=== PATIENT | female | born 1965 | race Two or more races ===

== ENCOUNTER 2024-01-18 15:08 | Inpatient (IN) | payer OTHER, SELFPAY ==
[2024-01-04 07:10] VITALS: BMI 36.7
[2024-01-04 08:48] LABS: Hematocrit 40.8 % (37.0-47.0); Hemoglobin 13.1 g/dL (12.0-16.0); Mean Corp Hgb Conc. 32.1 g/dL (33.0-37.0); Mean Corpuscular Hgb 27.9 pg (27.0-31.0); Mean Platelet Volume 9.7 fL (7.4-10.4); Platelet Count 265 10^3/uL (130-400); Red Blood Cell Count 4.69 10^6/uL (4.20-5.40); Red Cell Dist. Width 13.8 % (11.5-14.5)
[2024-01-04 09:25] LABS: Blood Urea Nitrogen 20 mg/dl (7-17); Calcium 9.7 mg/dl (8.4-10.2); Carbon Dioxide 26 mmol/L (22-30); Chloride 104 mmol/L (98-107); Estimated Creatinine Clearance 112 ml/min; Glucose 87 mg/dl (70-99); Potassium 3.9 mmol/L (3.5-5.1); Sodium 137 mmol/L (135-145); eGFR > 60.00
--- NOTE | 2024-01-06 12:10 | CM ---
Patient is scheduled for a Robotic incisional hernia repair on 01/18/24. Spoke with patient's prior to surgery via telephone to complete case management assessment and assess for discharge planning needs. He reports that he, patient, their
son and patient's mother live in a two story home. There are two steps to enter and patient has a first floor set up. Patient currently functions independently. Patient does not use any DME but there is a cane, rolling walker and shower seat in the
home. She has never had VN services. She has a prescription plan and uses [facility] in [place].
PCP is Scott Titus
Discussed discharge plans. He states that the plan is for patient to return home at discharge. He states that he will be home and can provided any needed support. He has no discharge planning concerns at this time and does not feel patient will need
VN.
[2024-01-18] VITALS (16 sets, daily range): BP systolic 82–152; BP diastolic 54–82; BMI 36.7
--- NOTE | 2024-01-18 08:59 | HP.FOC2 ---
Focused History & Physical
Chief Complaint
HPI:
Chief Complaint: Incisional hernia
HPI / Indication for Planned Procedure: Patient is a 58-year-old female with a past abdominal surgical history of having undergone laparotomy, left hemicolectomy, omentectomy, mobilization of splenic flexure, appendectomy for management of sigmoid
diverticulitis in July 2020. She has since developed incisional hernias that have slowly progressed in size and become symptomatic. Patient presents today for scheduled operative correction.
Relevant Past Medical History: Other (GERD, gastritis, borderline hypertension, obesity with BMI of 36.7)
Relevant Social History: Negative
Relevant Family History: Negative
Relevant Past Surgical History: Positive for (Laparotomy, left hemicolectomy/sigmoidectomy; total hysterectomy; colonoscopy with anastomotic dilation)
Review of Systems
Review of Pertinent Systems: All Systems Negative
Medication
See Medication form for detailed medications: Yes
Medication List (including Herbals & OTC):
Cinsulin 1 dose PO DAILY 01/12/24
Tri Sugar Shield 1 dose PO DAILY 01/12/24
losartan 25 mg tablet 25 mg PO PRN PRN HTN 01/12/24
pantoprazole 40 mg tablet,delayed release 40 mg PO BID 01/12/24
Medications Reviewed: Yes
Allergies and Reactions
Patient has Allergies: Yes
Noted Allergies and Reactions:
Allergy/AdvReac Type Severity Reaction Status Date / Time
codeine Allergy severe Verified 01/18/24 08:57
headache,
dizziness,
nausea
Pertinent Physical Exam
All Other Systems: Negative
Head/Neck: Normal
Lungs: Normal
Heart: Normal
Abdomen: Other (Midline laparotomy scar, incisional hernias, reducible)
Extremities: Normal
Neurological: Normal
Diagnosis / Assessment
58-year-old female presenting for scheduled operative correction symptomatic incisional hernias
Plan / Procedure
Robotic assisted laparoscopic repair incisional hernias with mesh
Anesthesia/Sedation to be done by Anesthesia Provider: Yes
[2024-01-18] MEDS: TYLENOL 1000 MG PO (09:00)
[2024-01-18] MEDS: NORMOSOL-R 1000 IV (09:02)
--- NOTE | 2024-01-18 09:02 | W.SUR.PREOP ---
Pre-Operative Surgical Note
-
I have examined this patient prior to the performance of the scheduled procedure.
The patient's condition is unchanged from the time of the current History and
Physical and the patient is able to undergo the scheduled procedure.
[2024-01-18] MEDS: DILAUDID 0.25 MG IV ×2 (14:50→14:59)
--- NOTE | 2024-01-18 14:50 | W.IMMPOSTOP ---
Addendum entered and electronically signed by Rivas Pruett MD 01/18/24 15:30:
#[id number]
Original Note:
Surgical Immed Post Op Note
-
Primary Surgeon: Seble
Assisting Surgeon: Brianda HURLEY
Pre-op Diagnosis: Incisional hernias
Post-op Diagnosis: Multiple incisional hernias (12cm total length); numerous SB adhesions
Procedure Performed: RAL eTEP -> converted to open lysis of adhesions, retrorectus mesh repair incisional hernias ([id number] bard soft mesh)
Anesthesia Type: GETA +0.25% Marcaine
Specimen / Cultures: None
Estimated Blood Loss: 30 mL
Complications: None immediate
Operative Findings: Initial robotic assisted laparoscopic eTEP approach with left-sided retrorectus access. Left-sided retrorectus dissection completed with superior and inferior crossover. As dissection proceeded to midline hernias numerous small
bowel adhesions were identified which would not be amenable to robotic assisted laparoscopic lysis. Converted to midline laparotomy and completed small bowel adhesiolysis/abdominal wall exposure. There were no enterotomies or serosal injuries.
Peritoneum/posterior sheath closed with 2-0 PDS Stratafix suture. Multiple midline incisional hernias spanning total vertical length of 12 cm and maximal width of 4 to 5 cm. Retrorectus mesh repair utilizing 28 cm x 15 cm Bard soft mesh. Closure
of linea alba/anterior rectus sheath with #1 PDS Stratafix suture.
Plan: Admit postop, sips of clears monitoring for postoperative ileus, routine postoperative supportive care.
[2024-01-18] MEDS: DILAUDID 0.5 MG IV ×2 (15:30→22:19)
--- NOTE | 2024-01-18 16:35 | PTCARENOTE ---
Pt received via bed from PACU. Transport was w/o incident. Pt is Awake, sl drowsy and easily arousable. VSS Pt is afebrile. Pt's abd w/ 4 lap sites w/ surgi glue well approximated. Veritical Midline incision covered w/ guaze and medipore tape, no
drainage noted. Pt denies nausea or pain at this time. Pt had recently been medicated for pain in the PACU prior to transfer. Auguste cath intact draining yellow urine. Pt instructed on plan of care. Pt verbalized understanding of instructions. Shamar
crews is within reach.
[2024-01-18] MEDS: NSS 1000 IV (17:23)
[2024-01-18] MEDS: ZOFRAN 4 MG IV (19:03)
[2024-01-18] MEDS: OFIRMEV 100 IV (19:29)
[2024-01-19] MEDS: DILAUDID 1 MG IV ×6 (00:46→20:19)
[2024-01-19] MEDS: NSS 1000 IV ×3 (01:15→16:51)
[2024-01-19 03:36] VITALS: BP 110/60
[2024-01-19 05:30] LABS: Hematocrit 34.9 % (37.0-47.0); Hemoglobin 11.7 g/dL (12.0-16.0); Mean Corp Hgb Conc. 33.5 g/dL (33.0-37.0); Mean Corpuscular Hgb 28.5 pg (27.0-31.0); Mean Corpuscular Volume 85.1 fL (81.0-99.0); Mean Platelet Volume 9.2 fL (7.4-10.4); Platelet Count 260 10^3/uL (130-400); Red Cell Dist. Width 14.5 % (11.5-14.5); White Blood Cell Count 9.5 10^3/uL (4.8-10.8)
[2024-01-19 06:02] LABS: Blood Urea Nitrogen 13 mg/dl (7-17); Calcium 8.6 mg/dl (8.4-10.2); Carbon Dioxide 28 mmol/L (22-30); Chloride 102 mmol/L (98-107); Estimated Creatinine Clearance 112 ml/min; Glucose 102 mg/dl (70-99); Potassium 3.9 mmol/L (3.5-5.1); Sodium 136 mmol/L (135-145); eGFR > 60.00
[2024-01-19 06:50] LABS: Hepatitis C Antibody Negative (Negative)
--- NOTE | 2024-01-19 07:15 | W.PN.GS2 ---
Today's Communication / Plan
-
`
Assessment / Plan
-
Assessment: 58 y/o female POD#1 RAL -> open lysis of adhesions and retrorectus mesh repair incisional hernias
AFVSS
doing well post op
hgb 11.7 - acute blood loss anemia d/t expected/normal intraoperative blood loss
Plan: IV ofirmev/dilaudid PRN today - holding toradol initial 24hrs post op d/t retrorectus dissection
okay for clear liquid diet for comfort
maintain IVF
OOBTC/ambulate, encourage IS use
everett until POD#2
lovenox for VTEp
protonix for GIp
Subjective Data
-
Date of Service: January 19, 2024
pt seen and examined
post op pain - but reports controlled
nausea initially post op yesterday but improved
offers no additional concerns/complaints
Objective Data
-
Intake and Output
01/18/24 01/19/24 01/20/24
06:59 06:59 06:59
Intake Total 1500 / 1500
Output Total 1650 / 1650
Balance -150 / -150
Intake:
Oral fluids 60 / 60
IV fluids (Total) 1440 / 1440
Output:
Urine, Everett 1650 / 1650
Vital Signs
Temp Pulse Resp BP Pulse Ox
98.5 F 77 18 110/60 97
01/19/24 03:36 01/19/24 03:36 01/19/24 03:36 01/19/24 03:36 01/19/24 03:36
Lab Results
01/19/24 04:49
01/19/24 04:49
Calcium 8.6 mg/dl (8.4-10.2) 01/19/24 04:49
Physical Exam
-
NAD AAOx3
ABD: soft, nondistended, generalized tenderness - expected
midline incision with gauze dressing
robo sites with glue dressings
[2024-01-19 07:46] VITALS: BP 141/74
[2024-01-19] MEDS: PROTONIX IV 40 MG IV (07:54)
[2024-01-19] MEDS: NSS (PRESERVATIVE FREE) 10 ML IV (07:54)
[2024-01-19] MEDS: ZOFRAN 4 MG IV (08:58)
[2024-01-19 11:06] VITALS: BP 161/72
[2024-01-19] MEDS: OFIRMEV 100 IV ×2 (11:11→19:36)
--- NOTE | 2024-01-19 14:46 | PTCARENOTE ---
Pt refused RN offered to get out of bed to chair 2x this shift so far. RN said she will offer pt again this evening and that maybe pt can eat dinner in chair.
[2024-01-19 15:20] VITALS: BP 148/77
--- NOTE | 2024-01-19 16:30 | CM ---
Initial assessment completed with patient who lives with her , son and mother. 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 They live in a 2 story home plus basement with B/B on 1st floor. 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 She does not use any DME or have in-home services. Mother has a RW. Pharmacy is [facility] in [place] and PCP is Dr. Scott Martinez. Anticipate no needs at discharge.
[2024-01-19] MEDS: LOVENOX 40 MG SC (16:55)
[2024-01-19] MEDS: FLUSH (NSS) 1 FLUSH IV (20:19)
[2024-01-19 23:00] VITALS: BP 137/75
[2024-01-20] MEDS: DILAUDID 1 MG IV ×2 (00:48→04:56)
[2024-01-20] MEDS: NSS 1000 IV ×2 (00:49→09:25)
--- NOTE | 2024-01-20 05:00 | DOWNTIME ---
There was a [employer] Downtime on 01/20/2024 from 0100 to 01/20/2024 at 0439. Downtime documentation of patient's care, including medication administrations, has been reconciled in the electronic record per guidelines. Refer to the
patient's paper chart under the miscellaneous tab to see printed paper medication records and downtime forms.
[2024-01-20] MEDS: MYLICON 80 MG PO (05:37)
[2024-01-20 05:54] LABS: Hematocrit 36.4 % (37.0-47.0); Hemoglobin 11.7 g/dL (12.0-16.0); Mean Corp Hgb Conc. 32.1 g/dL (33.0-37.0); Mean Corpuscular Hgb 28.5 pg (27.0-31.0); Mean Corpuscular Volume 88.8 fL (81.0-99.0); Mean Platelet Volume 9.1 fL (7.4-10.4); Platelet Count 241 10^3/uL (130-400); Red Cell Dist. Width 14.5 % (11.5-14.5); White Blood Cell Count 9.4 10^3/uL (4.8-10.8)
[2024-01-20 06:20] LABS: Blood Urea Nitrogen 8 mg/dl (7-17); Calcium 8.5 mg/dl (8.4-10.2); Carbon Dioxide 29 mmol/L (22-30); Chloride 104 mmol/L (98-107); Estimated Creatinine Clearance > 125 ml/min; Glucose 86 mg/dl (70-99); Potassium 3.4 mmol/L (3.5-5.1); Sodium 135 mmol/L (135-145); eGFR > 60.00
--- NOTE | 2024-01-20 07:09 | W.PN.GS2 ---
Today's Communication / Plan
-
`
Assessment / Plan
-
Assessment: 58 y/o female POD#2 RAL -> open lysis of adhesions and retrorectus mesh repair incisional hernias
AFVSS
doing well post op
hgb 11.7 - acute blood loss anemia d/t expected/normal intraoperative blood loss - stable 48hrs post op
mild hypokalemia
Plan: IV ofirmev/dilaudid PRN and start toradol 10mg IV q6 today
okay for full liquid diet for comfort
maintain IVF at reduced rate
OOBTC/ambulate, encourage IS use
everett out and voiding
lovenox for VTEp
protonix for GIp
Subjective Data
-
Date of Service: January 20, 2024
pt seen and examined
voided after everett removed this AM
c/o post op incisional pain
no nausea
gas cramps
ashleigh some clears
Objective Data
-
Intake and Output
01/19/24 01/20/24 01/21/24
06:59 06:59 06:59
Intake Total 1500 / 1500 3615 / 3615
Output Total 1650 / 1650 3025 / 3025
Balance -150 / -150 590 / 590
Intake:
Oral fluids 60 / 60 960 / 960
IV fluids (Total) 1440 / 1440 2640 / 2640
IV piggybacks 15 / 15
Output:
Urine, Everett 1650 / 1650 3025 / 3025
Vital Signs
Temp Pulse Resp BP Pulse Ox
97.8 F 54 18 137/75 94
01/19/24 23:00 01/19/24 23:00 01/19/24 23:00 01/19/24 23:00 01/19/24 23:00
Lab Results
01/20/24 05:33
01/20/24 05:33
Calcium 8.5 mg/dl (8.4-10.2) 01/20/24 05:33
Physical Exam
-
NAD AAOx3
ABD: soft, nondistended, generalized tenderness on palpation but no R/R/G
midline incision with steris - no erythema, no drainage, no eccymosis
robo sites with glue dressings
[2024-01-20 07:30] VITALS: BP 139/48
[2024-01-20] MEDS: PROTONIX IV 40 MG IV (09:09)
[2024-01-20] MEDS: KCL 160 MEQ IV (09:09)
[2024-01-20] MEDS: NSS (PRESERVATIVE FREE) 10 ML IV (09:11)
[2024-01-20] MEDS: TORADOL 10 MG IV ×3 (09:12→19:40)
[2024-01-20] MEDS: TORADOL IV ×2 (12:31→14:07)
[2024-01-20] MEDS: OFIRMEV 100 IV (12:45)
--- NOTE | 2024-01-20 15:22 | CM ---
Auguste D/CD, IV fluids, full liquid diet. Anticipate no needs at discharge. Will continue to follow should needs change.
[2024-01-20 15:50] VITALS: BP 120/62
[2024-01-20] MEDS: LOVENOX 40 MG SC (17:38)
[2024-01-20 23:35] VITALS: BP 135/78
[2024-01-21] MEDS: TORADOL 10 MG IV ×3 (01:27→13:00)
[2024-01-21 08:31] VITALS: BP 155/68
[2024-01-21] MEDS: PROTONIX IV 40 MG IV (08:32)
[2024-01-21] MEDS: NSS (PRESERVATIVE FREE) 10 ML IV (08:32)
--- NOTE | 2024-01-21 11:41 | CM ---
Addendum entered by Nguyen Little 01/21/24 16:17:
Plan: discharge to home today; no needs; will provide transport home
Original Note:
Met with patient at bedside
Plan: discharge to home when medically stable; will provide transport; no needs
[2024-01-21 15:04] VITALS: BP 154/90
--- NOTE | 2024-01-21 16:04 | W.PN.GS2 ---
Today's Communication / Plan
-
`
Assessment / Plan
-
Assessment: 58 y/o female POD#3 RAL -> open lysis of adhesions and retrorectus mesh repair incisional hernias
AFVSS
doing well post op
stable for d/c home
Plan: Discharge home, instructions reviewed, prescription sent
Subjective Data
-
Date of Service: January 21, 2024
Patient feeling better.
Improved pain control today. Ambulating easier.
Mild nausea only in the AM. Passing flatus and had small bowel movement yesterday.
Objective Data
-
Intake and Output
01/20/24 01/21/24 01/22/24
06:59 06:59 06:59
Intake Total 3615 / 3615 480 / 480
Output Total 3025 / 3025
Balance 590 / 590 480 / 480
Intake:
Oral fluids 960 / 960 480 / 480
IV fluids (Total) 2640 / 2640
IV piggybacks
Output:
Urine, Auguste 3025 / 3025
Other:
Number of approximated MODERATE 3
amounts of urine
Vital Signs
Temp Pulse Resp BP Pulse Ox
98.2 F 70 18 154/90 97
01/21/24 15:04 01/21/24 15:04 01/21/24 15:04 01/21/24 15:04 01/21/24 15:04
Lab Results
01/20/24 05:33
01/20/24 05:33
Calcium 8.5 mg/dl (8.4-10.2) 01/20/24 05:33
Physical Exam
-
NAD AAOx3
ABD: Soft, nondistended, mild incisional tenderness palpation. No rebound rigidity or guarding
Robot surgical sites with glue dressings healing well, no ecchymosis, no erythema, no drainage
Midline incision with Steri-Strips. No open wounds, no erythema, no drainage
--- NOTE | 2024-01-21 16:06 | W.DS.TRANS ---
Addendum entered and electronically signed by DANIEL Landis 01/28/24 14:31:
#[id number]
Original Note:
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
-
Discharge Instructions:
Sleep Apnea Risk Intermediate
Discharge Diagnosis/Procedures incisional hernias - open repair incisional
hernias with mesh, lysis of adhesions
Diet As tolerated,Regular
Additional Diets smaller meals initially after surgery as
abdominal bloating and distention are common
initially
Activity No strenuous activity
Additional Activity no lifting over 20 lbs for 6 weeks post op
Driving Restrictions No driving for 1 week
Bathing Restrictions OK to Shower
Wound Care glue and steri strips typically peel off in 2-3
weeks.
Instructions:
Stand-Alone Forms:
Changes to Home Medications: No
Discharge Medications:
DC Medications w/original date entered in [employer]
Cinsulin 1 dose PO DAILY Supplement 01/12/24
Tri Sugar Shield 1 dose PO DAILY Diabetes 01/12/24
losartan 25 mg tablet 25 mg PO PRN PRN HTN 01/12/24
pantoprazole 40 mg tablet,delayed release 40 mg PO BID Gastrointestinal Issue 01/12/24
acetaminophen 500 mg tablet (Tylenol Extra Strength) 1,000 mg (2 x 500 mg) PO Q6HPRN PRN mild pain #1 tab 01/21/24
ibuprofen 200 mg tablet 400 - 600 mg (2 - 3 x 200 mg) PO Q6HPRN PRN moderate pain #1 tab 01/21/24
ondansetron 4 mg disintegrating tablet 4 mg PO Q8HPRN PRN nausea/vomiting #10 tabs 01/21/24
polyethylene glycol 3350 17 gram/dose oral powder (Miralax) 4 g PO DAILY PRN Constipation #119 grams 01/21/24
tramadol 50 mg tablet 50 mg PO Q6HPRN PRN severe pain/breakthrough pain #20 tabs 01/21/24
Home Medication Changes
Pending Results: No
[2024-01-21] MEDS: LOVENOX 40 MG SC (17:41)
== END 2024-01-21 18:02 | disposition home or self-care (01) | DRG 354 ==
LOC: 2 SOUTH 15:08
PROVIDERS: ADMITTING PHYSICIAN Surgery; FAMILY PHYSICIAN Internal Medicine
PROC: 8E0W0CZ Robotic Assisted Procedure of Trunk Region, Open Approach (ICD-10-PCS; 2024-01-18)
PROC: 0WUF0JZ Supplement Abdominal Wall with Synthetic Substitute, Open Approach (ICD-10-PCS; 2024-01-18)
DX: K43.2 Incisional hernia without obstruction or gangrene (principal); D62 Acute posthemorrhagic anemia; K66.0 Peritoneal adhesions (postprocedural) (postinfection); E87.6 Hypokalemia; E66.9 Obesity, unspecified; Z53.31 Laparoscopic surgical procedure converted to open procedure; Z68.36 Body mass index [BMI] 36.0-36.9, adult; Z88.5 Allergy status to narcotic agent
CPT/HCPCS: 36415; 80048; 85027; 86803; 93005; C1781